=== PATIENT | male | born 1990 | race Caucasian/White ===

== ENCOUNTER 2024-09-22 08:51 | Emergency (ER) | payer BC, SELFPAY ==
[2024-09-22 08:54] VITALS: BP 135/72
--- NOTE | 2024-09-22 09:19 | ED.GENMED ---
History of Present Illness
General
Chief Complaint: Abdominal Pain
Time Seen by Provider: 09/22/24 09:07
History of Present Illness
History of Present Illness:
34-year-old male with no significant past medical history presents the emergency department for evaluation of left flank pain for the past 2 to 3 days. Increasing in severity, notes a constant dull pain that has intermittent sharp qualities. Does
not radiate toward the pelvis but does radiate anteriorly. No fevers or chills. Has had some sweats this morning and vomited x 1. No history of abdominal surgeries. Has not taken any meds for pain this morning
Past History
Past History
ED Past Medical History: None
ED Past Surgical History: None
Social History
Tobacco: Former smoker
Alcohol: Occasional
Personal: Single
Living: with family
Employment: Employed
Review of Systems
Review of Systems
Allergies reviewed?: Yes
All Other Systems: ROS reviewed and negative except as documented in HPI and ROS
Phy Exam
Physical Exam
Physical Exam:
GEN: Well appearing, NAD, WDWN
HEENT: Oral mucosa moist, no scleral icterus
Cardiac: Regular rate
Lung: No respiratory distress, no tachypnea
Abdomen: Soft, grossly nontender, no CVA tenderness
MSK: No gross deformity or injuries
Skin: Good color, no pallor or jaundice, no rashes
Neuro: AO x3, moves all extremities freely
Psych: Calm, cooperative
Course
Orders/Labs/Results
Orders:
Orders
09/22/24 09:20
CT Abd/pel Without Iv Or Oral Urgent
Comment:
Reason For Exam: flank pain
Ketorolac [Toradol] 15 mg IV NOW STA
09/22/24 09:29
Complete Blood Count/With Diff Urgent
Comprehensive Metabolic Panel Urgent
Urinalysis Reflex To Culture Urgent
Date Specimen was Collected: 09/22/24
Time Specimen was Collected: 09:24
Urine Microscopic Reflex Cult Urgent
Abnormal Lab Results
09/22/24
09:29
MPV 10.6 H fL
(7.4-10.4)
Absolute Lymphs (auto) 0.8 L 10^3/uL
(1.2-3.4)
Neutrophils % 79.5 H %
(42.2-75.2)
Lymphocytes % 12.6 L %
(20.5-51.1)
Glucose 125 H mg/dl
(70-99)
Ur Occult Blood Reflex 2+ A
(Negative)
Urine Bacteria (Reflex) Few A
(Negative)
Urine Albumin (Reflex) 1+ A
(Neg - Trace)
09/22/24 09:29
09/22/24 09:29
Vital Signs
Initial and Last Documented VS:
Initial Vital Signs
Temp
98.5 F
09/22/24 08:52
Last Documented Vital Signs
Temp Pulse Resp BP Pulse Ox
98.5 F 90 18 130/70 99
09/22/24 08:52 09/22/24 11:31 09/22/24 11:31 09/22/24 11:31 09/22/24 11:31
MDM/Problems Addressed
MDM/Problems Addressed:
Patient's workup is unremarkable. No evidence of ureterolithiasis on CT, labs and urinalysis are unrevealing of acute pathology. Treated with NSAIDs with improvement in symptoms. May be musculoskeletal, discussed return precautions and supportive
care
*Critical Care Note
Total Time (30-74mins, 75-104mins- exclusive of procedures): Not Applicable
ED Attending Note
-
Portions of this chart may have been created with voice recognition software.� Occasional wrong word or��sound alike� substitutions may have occurred due to the inherent limitations of voice recognition software.
Discharge Plan
Departure
Patient Disposition: Home (Routine Discharge)
Date of Disposition: 09/22/24
Time of Disposition: 11:17
Patient with high blood pressure during this ER visit?: No
Discharge Problem:
Acute left flank pain
Instructions: Flank Pain ED
Prescriptions:
New
celecoxib 200 mg capsule
200 mg PO BID PRN (Reason: Pain) Qty: 20 0RF
No Action
levofloxacin 500 MG tablet
500 mg PO DAILY Qty: 7 0RF
famotidine 20 MG tablet
20 mg PO BID Qty: 28 0RF
Rx Instructions:
Take 20 mg twice a day for 14 days
ascorbic acid (vitamin C) [Vitamin C] 500 MG tablet
1,000 mg PO BID Qty: 56 0RF
Rx Instructions:
Take 1,000 mg twice a day for 14 days
zinc sulfate 220 MG capsule
220 mg PO DAILY Qty: 14 0RF
Rx Instructions:
Take 220 mg daily for 14 days
cholecalciferol (vitamin D3) 1,000 UNITS tablet
2,000 units PO DAILY Qty: 28 0RF
Rx Instructions:
Take 2,000 units daily for 14 days
clotrimazole-betamethasone 1 APPLIC cream
1 applic topical BID Qty: 1 0RF
ondansetron 4 mg tablet,disintegrating
4 mg PO TIDPRN PRN (Reason: nausea/vomiting) Qty: 14 0RF
albuterol sulfate [ProAir HFA] 90 mcg/actuation HFA aerosol inhaler
1 puff inhalation Q4HPRN PRN (Reason: shortness of breath) Qty: 8.5 0RF
Referrals:
NONE,* [Family Provider] -
Interventions
Interventions:
*Risk Screen - Suicide Last Done: 09/22/24 09:09
*General Assessment Last Done: 09/22/24 09:09
*Neglect/Abuse Screening Last Done: 09/22/24 09:09
*ED- Fall Risk Assessment Last Done: 09/22/24 09:09
*ED COVID-19 Vaccine History Last Done: 09/22/24 09:09
*Nursing Disposition Last Done: 09/22/24 11:31
[facility]-Wdcv[facility]-Yhkujnvlav Assessment Last Done: 09/22/24 09:09
Discharge Date and Time
Discharge Date/Time: 09/22/24 11:32
Print Language: [place]
[2024-09-22] MEDS: TORADOL 15 MG IV (09:26)
[2024-09-22 09:38] LABS: % Basophils 0.3 % (0-2); % Eosinophils 0.6 % (0-6); % Immature Granulocytes 0.5 % (0-0.5); % Lymphocytes 12.6 % (20.5-51.1); % Monocytes 6.5 % (1.7-9.3); % Neutrophils 79.5 % (42.2-75.2); Absolute Lymphocytes 0.8 10^3/uL (1.2-3.4); Absolute Monocytes 0.4 10^3/uL (0.1-0.6); Absolute Neutrophils 5.3 10^3/uL (1.4-6.5); Hematocrit 44.1 % (39.0-52.0); Hemoglobin 15.3 g/dL (13.0-18.0); Mean Corp Hgb Conc. 34.7 g/dL (33.0-37.0); Mean Corpuscular Hgb 28.7 pg (27.0-31.0); Mean Corpuscular Volume 82.6 fL (80.0-94.0); Mean Platelet Volume 10.6 fL (7.4-10.4); Nucleated Red Blood Cells % 0 % (-); Platelet Count 214 10^3/uL (130-400); Red Blood Cell Count 5.34 10^6/uL (4.70-6.10); Red Cell Dist. Width 12.3 % (11.5-14.5); White Blood Cell Count 6.7 10^3/uL (4.8-10.8)
[2024-09-22 09:49] LABS: ALT (SGPT) 36 U/L (0-50); AST (SGOT) 32 U/L (17-59); Albumin 4.5 g/dl (3.5-5.0); Alkaline Phosphatase 62 U/L (38-126); Blood Urea Nitrogen 13 mg/dl (9-20); Calcium 9.2 mg/dl (8.4-10.2); Carbon Dioxide 25 mmol/L (22-30); Chloride 102 mmol/L (98-107); Glucose 125 mg/dl (70-99); Sodium 136 mmol/L (135-145); Total Bilirubin 0.7 mg/dl (0.2-1.3); Total Protein 7.7 g/dl (6.3-8.2); eGFR > 60.00
[2024-09-22 10:26] LABS: Urine Albumin 1+ (Neg - Trace); Urine Bilirubin Negative (Negative); Urine Character Clear (Clear); Urine Color Yellow; Urine Glucose Negative (Negative); Urine Ketone Negative (Negative); Urine Leukocyte Negative (Negative); Urine Nitrite Negative (Negative); Urine Occult Blood 2+ (Negative); Urine Specific Gravity 1.015 (<1.030); Urine Urobilinogen Negative (Neg - 1+)
[2024-09-22 11:04] LABS: Urine Mucus Many
[2024-09-22 11:08] LABS: Urine Amorphous Seen
[2024-09-22 11:09] LABS: Urine Red Blood Cell 0-2 /HPF (0-2); Urine Urothelial Cell 0-2 /LPF (FEW)
[2024-09-22 11:10] LABS: Urine Bacteria Few (Negative); Urine White Cell 0-2 /HPF (0-5)
[2024-09-22 11:31] VITALS: BP 130/70
== END 2024-09-22 11:32 | disposition home or self-care (01) ==
LOC: EMR 08:51
PROVIDERS: Physician Assistant; EMERGENCY PHYSICIAN Emergency Medicine
DX: R10.9 Unspecified abdominal pain (principal); Z87.891 Personal history of nicotine dependence
CPT/HCPCS: 99285; 96374; 74176; 80053; 81003; 81015; 85025